=== PATIENT | male | born 1945 ===

== ENCOUNTER 2017-07-23 15:09 | Inpatient (IN) | payer OTHER ==
--- NOTE | 2017-07-23 15:59 | ED PDOC ---
HPI: SOB/CHF/COPD Time Seen by Provider: 07/23/17 15:26 Chief Complaint (Nursing): Shortness Of Breath Additional Complaint(s): 72 yo male pmhx HTN and ?PVD presents to ED w/ c/o dyspnea on exertion, PND, B/ L swelling of legs and non-productive cough x 1 month. Pt reports he went to see his PMD for the first time today and was told to come to ED for further evaluation. Pt reports he feels shortness of breath with walking 1-2 blocks for 1 month (states this is new to pt). Denies chest pain, nausea, vomiting, extremity weakness or numbness. Denies fever, chills. Pt came from [place] 4 months ago and denies ever being diagnosed with CHF or COPD. Denies smoking cigarettes or EtOH. Denies having ECHO done in the past. PMD: Dr. Dorota Mancuso Past Medical History Vital Signs: Last Vital Signs Temp 97.3 F L 07/23/17 15:18 Pulse 113 H 07/23/17 15:18 Resp 22 07/23/17 15:18 BP 140/98 H 07/23/17 17:15 Pulse Ox 98 07/23/17 16:23 - Medical History PMH: HTN - Surgical History Surgical History: No Surg Hx - Family History Family History: States: Hypertension (and CHF: mother) - Social History Current smoker - smoking cessation education provided: No Ex-Smoker (has not smoked in the last 12 months): No Alcohol: None Drugs: Denies - Home Medications Home Medications: Ambulatory Orders Medication Instructions Recorded Ascorbic Acid [Vitamin C 500 mg 1 tab PO DAILY 07/23/17 Tab] Aspirin [Ecotrin] 1 tab PO DAILY 07/23/17 Captopril [Captopril] 25 mg PO BID 07/23/17 Multivitamin [Multi-Vitamin Daily] 1 tab PO DAILY 07/23/17 - Allergies Allergies/Adverse Reactions: Allergies Allergy/AdvReac Type Severity Reaction Status Date / Time No Known Allergies Allergy Verified 07/23/17 15:18 Review of Systems Constitutional: Negative for: Fever, Chills Eyes: Negative for: Vision Change ENT: Negative for: Nose Congestion Cardiovascular: Positive for: Orthopnea, Paroxysmal Noc. Dyspnea, Edema. Negative for: Chest Pain, Palpitations Respiratory: Positive for: Cough, SOB with Exertion. Negative for: Sputum Gastrointestinal: Negative for: Nausea, Vomiting, Abdominal Pain Genitourinary Male: Negative for: Dysuria Skin: Negative for: Rash Neurological: Negative for: Weakness, Numbness, Headache, Dizziness Physical Exam - Physical Exam Appears: Positive for: Non-toxic, No Acute Distress Head Exam: Positive for: ATRAUMATIC, NORMOCEPHALIC Skin: Negative for: Diaphoresis ENT: Positive for: Normal ENT Inspection Neck: Positive for: Normal Cardiovascular/Chest: Positive for: Regular Rate, Rhythm. Negative for: Murmur Respiratory: Positive for: Crackles (on b/l lung base) Gastrointestinal/Abdominal: Positive for: Normal Exam, Bowel Sounds, Soft. Negative for: Tenderness Extremity: Positive for: Pedal Edema, Swelling (B/L 2+ upto proximal tibia with visible varicose veins.) Neurologic/Psych: Positive for: Alert, test deskman II-XII, Oriented. Negative for: Motor/Sensory Deficits, Aphasia, Facial Droop - Laboratory Results Result Diagrams: 07/23/17 16:09 07/23/17 16:09 - ECG O2 Sat by Pulse Oximetry: 98 - Progress ED Course And Treament: Assessment: 72 yo male PMHX HTN sent to ED from PMD for evaluation of dyspnea on exertion, orthopnea and PND for 1 month. Plan: EKG PRO BNP CMP TROPONIN I CBC D DIMER PT/INR UA Case d/w ED attending Dr. Kevin Lenz at 6:45 pm Pt's pro BNP is 6190 and D-dimer 1857. CT of chest was negative for PE and dopple us LE report is pending. Pt will need hospitalization for new onset CHF. Spoke with and pt will be admitted under Dr. Meza. Disposition - Clinical Impression Clinical Impression: CHF (congestive heart failure), Exertional dyspnea - Patient ED Disposition Is Patient to be Admitted: Yes Discussed With : Garfield Meza - Disposition Disposition Time: 18:51 Condition: GUARDED Forms: [facility] (Lao) - Pt Status Changed To: Hospital Disposition Of: Inpatient - Admit Certification Admit to Inpatient:: After my assessment, the patient will require hospitalization for at least two midnights. This is because of the severity of symptoms shown, intensity of services needed, and/or the medical risk in this patient being treated as an outpatient.
[2017-07-23 16:20] LABS: BASO % 0.6 % (0.0-2.0); EOS # 0.1 K/uL (0.0-0.7); EOS % 1.1 % (0.0-4.0); LYMPH # 1.8 K/uL (1.0-4.3); LYMPH % 23.2 % (20.0-40.0); MEAN CELL VOLUME 89.8 fl (80.0-94.0); MEAN CORPUSCULAR HEMOGLOBIN 29.8 pg (27.0-31.0); MEAN CORPUSCULAR HGB CONC 33.2 g/dL (33.0-37.0); MEAN PLATELET VOLUME 10.9 fl (7.2-11.7); MONO # 0.8 K/uL (0.0-0.8); NEUT # 4.9 K/uL (1.8-7.0); NEUT % 64.1 % (50.0-75.0); NRBC % 0.1 % (0.0-0.0); RBC 4.7 Mil/uL (4.40-5.90); RED CELL DISTRIBUTION WIDTH 15.4 % (11.5-14.5); WHITE BLOOD COUNT 7.6 K/uL (4.8-10.8)
[2017-07-23 16:32] LABS: URINE BACTERIA RARE (<OCC); URINE BILIRUBIN NEGATIVE (NEGATIVE); URINE BLOOD NEGATIVE (NEGATIVE); URINE CLARITY CLOUDY (Clear); URINE COLOR AMBER (YELLOW); URINE GLUCOSE (UA) NEG (Normal); URINE LEUKOCYTE ESTERASE NEG Leu/uL (Negative); URINE NITRATE NEGATIVE (NEGATIVE); URINE PROTEIN >=500 mg/dL (NEGATIVE)
[2017-07-23 16:44] LABS: ALB/GLOB RATIO 1.4 (1.0-2.1); ALBUMIN 3.5 g/dL (3.5-5.0); CALCIUM 8.8 mg/dL (8.4-10.2)
[2017-07-23 16:53] LABS: INR 1.4 (0.9-1.2); PROTHROMBIN TIME 15.9 Seconds (9.8-13.1)
[2017-07-23 16:54] LABS: PARTIAL THROMBOPLASTIN TIME 30.6 Seconds (25.6-37.1)
[2017-07-23 16:56] LABS: TROPONIN I 0.063 ng/mL (0.00-0.120)
--- NOTE | 2017-07-23 16:56 | RAD ---
HISTORY: Shortness of breath. COMPARISON: No prior. FINDINGS: LUNGS: No active pulmonary disease. PLEURA: No significant pleural effusion identified, no pneumothorax apparent. CARDIOVASCULAR: Cardiomegaly. No evidence of acute, significant cardiovascular disease. OSSEOUS STRUCTURES: No significant abnormalities. VISUALIZED UPPER ABDOMEN: Normal. OTHER FINDINGS: None. IMPRESSION: No active disease.
[2017-07-23] MEDS ORDERED: Iodixanol 320 MG/ML 100 ML BOTTLE IV ONE (17:45)
[2017-07-23] MEDS ORDERED: Sodium Chloride 0.9% 50 ML IV ONE (17:45)
--- NOTE | 2017-07-23 18:13 | CT ---
PROCEDURE: CT Chest with contrast (Pulmonary Angiogram) HISTORY: SOB COMPARISON: None available. TECHNIQUE: Axial computed tomography images were obtained of the chest in the pulmonary arterial phase of enhancement. Coronal and sagittal reformatted images were created and reviewed. Maximum intensity projection (MIP) reconstructed images in the following planes: Axial projection only Intravenous contrast dose: 95 cc Visipaque 320. Mean Hounsfield unit values in the main pulmonary artery: 407.78 Radiation dose: Total exam DLP = 675.52 mGy-cm. This CT exam was performed using one or more of the following dose reduction techniques: Automated exposure control, adjustment of the mA and/or kV according to patient size, and/or use of iterative reconstruction technique. FINDINGS: PULMONARY ARTERIES: Unremarkable. No pulmonary embolism. Dilated main pulmonary artery 4 cm consistent with pulmonary arterial hypertension. AORTA: Aneurysmal dilatation of the ascending aorta 4.8 cm. Non aneurysmal descending aorta. LUNGS: Unremarkable. No nodule, mass or pulmonary consolidation. PLEURAL SPACES: Small bilateral pleural effusions right larger than left. HEART: Cardiomegaly. Increased interstitial markings and thickening of interlobular septa compatible with mild pulmonary vascular congestion. Dilatation of the right ventricle, dense contrast within the IVC suggestive of a component of right heart failure, right heart strain. LYMPH NODES: No lymphadenopathy. BONES, CHEST WALL: Unremarkable. No fracture or destructive lesion OTHER FINDINGS: Stranding of the right upper quadrant fat adjacent to the gallbladder. No gallstones identified with certainty. Trace intra-abdominal ascites. IMPRESSION: 1. Unremarkable CT pulmonary angiogram. No pulmonary embolus. 2. Dilated main pulmonary artery consistent with pulmonary arterial hypertension and there may be a component of right heart failure. 3. Cardiomegaly, mild CHF. 4. Trace intra-abdominal ascites. 5. Right upper quadrant inflammatory changes adjacent to the gallbladder without gallstones.
--- NOTE | 2017-07-23 18:54 | US ---
PROCEDURE: Bilateral lower extremity venous duplex Doppler. HISTORY: BLE edema COMPARISON: None available. TECHNIQUE: Bilateral common femoral, superficial femoral, popliteal and posterior tibial veins were evaluated. Flow was assessed with color Doppler, compressibility, assessment of phasic flow and augmentation response. FINDINGS: COMMON FEMORAL VEIN: Right CFV: Unremarkable. Left CFV: Unremarkable. SUPERFICIAL FEMORAL VEIN: Right SFV: Unremarkable. Left SFV: Unremarkable. POPLITEAL VEIN: Right Popliteal: Unremarkable. Left Popliteal: Unremarkable. POSTERIOR TIBIAL VEIN: Right PTV: Unremarkable. Left PTV: Unremarkable. OTHER FINDINGS: None. IMPRESSION: No evidence of deep venous thrombosis.
--- NOTE | 2017-07-23 19:10 | CP.PCM.HP ---
History of Present Illness - History of Present Illness History of Present Illness: 72 yo male visiting from [place] with history of HTN and CAD brought by nephew because of legs swelling since 4 weeks ago followed with SOB on mild exertion 2 weeks later. Also noted waking up suddenly with SOB last week. Saw a PCP today who sent him here for evaluation and management for possible CHF. Patient denied chest pain, fever or chills. Present on Admission - Present on Admission Any Indicators Present on Admission: No History of DVT/PE: No History of Uncontrolled Diabetes: No Urinary Catheter: No Decubitus Ulcer Present: No Review of Systems - Review of Systems All systems: reviewed and no additional remarkable complaints except (aside from those mentioned above, 12 point system review were negative by me) Past Patient History - Infectious Disease Hx of Infectious Diseases: None - Past Medical History & Family History Pertinent Family History: brother and sister have CHF - Past Social History Smoking Status: Never Smoked Alcohol: None Drugs: Denies Home Situation {Lives}: With Family - CARDIAC Hx Cardia Arrhythmia: Yes Hx Hypertension: Yes - PSYCHIATRIC Hx Substance Use: No - SURGICAL HISTORY Hx Surgeries: No - ANESTHESIA Hx Anesthesia: No Meds Allergies/Adverse Reactions: Allergies Allergy/AdvReac Type Severity Reaction Status Date / Time No Known Allergies Allergy Verified 07/23/17 15:18 Physical Exam - Constitutional Appears: No Acute Distress - Head Exam Head Exam: ATRAUMATIC - Eye Exam Eye Exam: absent: Scleral icterus - ENT Exam ENT Exam: Mucous Membranes Moist - Neck Exam Neck exam: Negative for: Meningismus - Respiratory Exam Respiratory Exam: absent: Rhonchi, Wheezes, Respiratory Distress - Cardiovascular Exam Cardiovascular Exam: Tachycardia, Irregular Rhythm - GI/Abdominal Exam GI & Abdominal Exam: Soft. absent: Tenderness - Rectal Exam Rectal Exam: Deferred - Extremities Exam Extremities exam: Positive for: pedal edema (3+ pedal edema) - Back Exam Back exam: absent: tenderness - Neurological Exam Neurological exam: Alert, Oriented x3 - Psychiatric Exam Psychiatric exam: Normal Affect - Skin Skin Exam: Dry, Intact Results - Vital Signs Recent Vital Signs: Last Vital Signs Temp 97.3 F L 07/23/17 15:18 Pulse 113 H 07/23/17 15:18 Resp 22 07/23/17 15:18 BP 140/98 H 07/23/17 17:15 Pulse Ox 98 07/23/17 16:23 - Labs Result Diagrams: 07/23/17 16:09 07/23/17 16:09 Labs: Laboratory Results - last 24 hr 07/23/17 07/23/17 07/23/17 16:09 16:09 16:09 WBC 7.6 RBC 4.70 Hgb 14.0 Hct 42.2 MCV 89.8 MCH 29.8 MCHC 33.2 RDW 15.4 H Plt Count 171 MPV 10.9 Neut % (Auto) 64.1 Lymph % (Auto) 23.2 Carter % (Auto) 11.0 H Eos % (Auto) 1.1 Baso % (Auto) 0.6 Neut # (Auto) 4.9 Lymph # (Auto) 1.8 Carter # (Auto) 0.8 Eos # (Auto) 0.1 Baso # (Auto) 0.0 PT 15.9 H INR 1.4 H APTT 30.6 D-Dimer, Quantitative 1857 H Sodium 138 Potassium 4.4 Chloride 103 Carbon Dioxide 23 Anion Gap 16 BUN 31 H Creatinine 1.4 Est GFR ( Amer) 60 Est GFR (Non-Af Amer) 50 Random Glucose 126 H Calcium 8.8 Total Bilirubin 1.8 H AST 64 H ALT 100 H Alkaline Phosphatase 77 Troponin I 0.0630 NT-Pro-B Natriuret Pep 6190 H Total Protein 6.2 L Albumin 3.5 Globulin 2.6 Albumin/Globulin Ratio 1.4 Urine Color Urine Clarity Urine pH Ur Specific [place] Urine Protein Urine Glucose (UA) Urine Ketones Urine Blood Urine Nitrate Urine Bilirubin Urine Urobilinogen Ur Leukocyte Esterase Urine RBC (Auto) Urine Microscopic WBC Urine Bacteria Hyaline Casts 07/23/17 16:09 WBC RBC Hgb Hct MCV MCH MCHC RDW Plt Count MPV Neut % (Auto) Lymph % (Auto) [place] % (Auto) Eos % (Auto) Baso % (Auto) Neut # (Auto) Lymph # (Auto) Carter # (Auto) Eos # (Auto) Baso # (Auto) PT INR APTT D-Dimer, Quantitative Sodium Potassium Chloride Carbon Dioxide Anion Gap BUN Creatinine Est GFR ( Amer) Est GFR (Non-Af Amer) Random Glucose Calcium Total Bilirubin AST ALT Alkaline Phosphatase Troponin I NT-Pro-B Natriuret Pep Total Protein Albumin Globulin Albumin/Globulin Ratio Urine Color [place] Urine Clarity Cloudy Urine pH 5.0 Ur Specific [place] 1.029 Urine Protein >=500 Urine Glucose (UA) Neg Urine Ketones Trace Urine Blood Negative Urine Nitrate Negative Urine Bilirubin Negative Urine Urobilinogen 4.0 Ur Leukocyte Esterase Neg Urine RBC (Auto) 3 Urine Microscopic WBC 7 H Urine Bacteria Rare Hyaline Casts 6-10 H Assessment & Plan - Assessment and Plan (Free Text) Assessment: 72 yo male visiting from [place] with history of HTN and CAD brought by nephew because of legs swelling since 4 weeks ago followed with SOB on mild exertion 2 weeks later. Also noted waking up suddenly with SOB last week. Saw a PCP today who sent him here for evaluation and management for possible CHF. Patient denied chest pain, fever or chills. 1. CHF probably secondary to systolic dysfunction nephew said he was diagnosed with "ischemia" of the heart in [place] has been eating a lot of potato chips and salty food while here since 4 months ago only received ASA and Captopril ECHO cardiology consult with [facility] Lasix 40mg PO daily 2. HTN BP slightly elevated Lasix 40mg PO daily Continue Captopril 25mg PO BID low salt diet 3. CAD lipid profile continue ASA
[2017-07-24] MEDS ORDERED: Pneumococcal 23-Valent Vaccine IM ONE (05:02)
[2017-07-24 06:00] LABS: ALB/GLOB RATIO 1.3 (1.0-2.1); ALBUMIN 3.2 g/dL (3.5-5.0); BILIRUBIN,DIRECT 0.8 mg/ml (0.0-0.4); CALCIUM 8.6 mg/dL (8.4-10.2)
[2017-07-24 06:01] LABS: BASO % 0.6 % (0.0-2.0); EOS # 0.2 K/uL (0.0-0.7); HEMOGLOBIN 13.4 g/dL (12.0-18.0); LYMPH # 2.2 K/uL (1.0-4.3); LYMPH % 29.6 % (20.0-40.0); MEAN CELL VOLUME 90.3 fl (80.0-94.0); MEAN CORPUSCULAR HEMOGLOBIN 29.5 pg (27.0-31.0); MEAN CORPUSCULAR HGB CONC 32.7 g/dL (33.0-37.0); MEAN PLATELET VOLUME 11.4 fl (7.2-11.7); MONO # 0.7 K/uL (0.0-0.8); NEUT # 4.3 K/uL (1.8-7.0); NEUT % 56.8 % (50.0-75.0); NRBC % 0.1 % (0.0-0.0); RBC 4.55 Mil/uL (4.40-5.90); RED CELL DISTRIBUTION WIDTH 15.1 % (11.5-14.5); WHITE BLOOD COUNT 7.5 K/uL (4.8-10.8)
[2017-07-24] MEDS: Influenza Vaccine 18yr & older 0.5 ML/45 MCG SYR IM ONE ×2 (06:01→06:06)
--- NOTE | 2017-07-24 10:08 | CARD ---
APPROVED REPORT EKG Measurement Heart [id number] <Conclusion> Sinus tachycardia with premature atrial complexes with aberrant conduction Possible Left atrial enlargement Right bundle branch block Abnormal ECG
[2017-07-24] MEDS: Enoxaparin 40 mg Syringe SC SCH (10:16)
[2017-07-24] MEDS: Pantoprazole 40 mg EC Tab PO SCH (10:18)
--- NOTE | 2017-07-24 11:26 | CP.PCM.CON ---
History of Present Illness - History of Present Illness History of Present Illness: 72 yo male visiting from [place] with history of HTN and CAD admitted with CHF 4 weeks Hx pedal edema assoc w/ SOB/BRAVO Patient denied chest pain, fever or chills. Pt claims he has only had symptoms for 1 month Denies any cardiac problems BNP: 6190 Troponin: neg EKG: NSR RBBB ECHO: Severe LV Dysfunction global Hypokinesia EF: < 15% Severe MR Severe TR Past Patient History - Infectious Disease Hx of Infectious Diseases: None - Past Medical History & Family History Past Medical History?: Yes - Past Social History Smoking Status: Never Smoked - CARDIAC Hx Cardia Arrhythmia: Yes Hx Hypertension: Yes - PULMONARY Hx Respiratory Disorders: No - NEUROLOGICAL Hx Neurological Disorder: No - HEENT Hx HEENT Problems: No - RENAL Hx Chronic Kidney Disease: No - ENDOCRINE/METABOLIC Hx Endocrine Disorders: No - HEMATOLOGICAL/ONCOLOGICAL Hx Blood Disorders: No Hx AIDS: No Hx Human Immunodeficiency Virus (HIV): No - INTEGUMENTARY Hx Dermatological Problems: No - MUSCULOSKELETAL/RHEUMATOLOGICAL Hx Musculoskeletal Disorders: No Hx Falls: No - GASTROINTESTINAL Hx Gastrointestinal Disorders: No - GENITOURINARY/GYNECOLOGICAL Hx Genitourinary Disorders: No - PSYCHIATRIC Hx Psychophysiologic Disorder: No Hx Substance Use: No - SURGICAL HISTORY Hx Surgeries: No - ANESTHESIA Hx Anesthesia: No Hx Anesthesia Reactions: No Hx Malignant Hyperthermia: No Has any member of the family had a problem w/ anesthesia?: No Meds Allergies/Adverse Reactions: Allergies Allergy/AdvReac Type Severity Reaction Status Date / Time No Known Allergies Allergy Verified 07/23/17 15:18 - Medications Medications: Current Medications Docusate Sodium (Colace) 100 mg PO BID PRN PRN Reason: Constipation Enoxaparin Sodium (Lovenox) 40 mg SC DAILY [facility] PRN Reason: Protocol Last Admin: 07/24/17 10:16 Dose: 40 mg Furosemide (Lasix) 40 mg PO DAILY [facility] Last Admin: 07/24/17 10:17 Dose: 40 mg Lisinopril (Zestril) 5 mg PO DAILY [facility] Last Admin: 07/24/17 10:17 Dose: 5 mg Pantoprazole Sodium (Protonix Ec Tab) 40 mg PO DAILY [facility] Last Admin: 07/24/17 10:18 Dose: 40 mg Physical Exam - Respiratory Exam Respiratory Exam: NORMAL BREATHING PATTERN - Cardiovascular Exam Cardiovascular Exam: REGULAR RHYTHM - Extremities Exam Extremities exam: Positive for: pedal edema Results - Vital Signs Recent Vital Signs: Last Vital Signs Temp 97.4 F L 07/24/17 08:00 Pulse 101 H 07/24/17 10:17 Resp 18 07/24/17 08:00 BP 142/96 H 07/24/17 10:17 Pulse Ox 96 07/24/17 08:00 - Labs Result Diagrams: 07/24/17 04:25 07/24/17 04:25 Labs: Laboratory Results - last 24 hr 07/23/17 07/23/17 07/23/17 16:09 16:09 16:09 WBC 7.6 RBC 4.70 Hgb 14.0 Hct 42.2 MCV 89.8 MCH 29.8 MCHC 33.2 RDW 15.4 H Plt Count 171 MPV 10.9 Neut % (Auto) 64.1 Lymph % (Auto) 23.2 [place] % (Auto) 11.0 H Eos % (Auto) 1.1 Baso % (Auto) 0.6 Neut # (Auto) 4.9 Lymph # (Auto) 1.8 [place] # (Auto) 0.8 Eos # (Auto) 0.1 Baso # (Auto) 0.0 PT 15.9 H INR 1.4 H APTT 30.6 D-Dimer, Quantitative 1857 H Sodium 138 Potassium 4.4 Chloride 103 Carbon Dioxide 23 Anion Gap 16 BUN 31 H Creatinine 1.4 Est GFR ( Amer) 60 Est GFR (Non-Af Amer) 50 Random Glucose 126 H Calcium 8.8 Total Bilirubin 1.8 H Direct Bilirubin AST 64 H ALT 100 H Alkaline Phosphatase 77 Troponin I 0.0630 NT-Pro-B Natriuret Pep 6190 H Total Protein 6.2 L Albumin 3.5 Globulin 2.6 Albumin/Globulin Ratio 1.4 Triglycerides Cholesterol LDL Cholesterol Direct HDL Cholesterol Urine Color Urine Clarity Urine pH Ur Specific [place] Urine Protein Urine Glucose (UA) Urine Ketones Urine Blood Urine Nitrate Urine Bilirubin Urine Urobilinogen Ur Leukocyte Esterase Urine RBC (Auto) Urine Microscopic WBC Urine Bacteria Hyaline Casts 07/23/17 07/24/17 07/24/17 16:09 04:25 04:25 WBC 7.5 RBC 4.55 Hgb 13.4 Hct 41.1 MCV 90.3 MCH 29.5 MCHC 32.7 L RDW 15.1 H Plt Count 153 MPV 11.4 Neut % (Auto) 56.8 Lymph % (Auto) 29.6 [place] % (Auto) 10.0 Eos % (Auto) 3.0 Baso % (Auto) 0.6 Neut # (Auto) 4.3 Lymph # (Auto) 2.2 [place] # (Auto) 0.7 Eos # (Auto) 0.2 Baso # (Auto) 0.0 PT INR APTT D-Dimer, Quantitative Sodium 141 Potassium 4.1 Chloride 100 Carbon Dioxide 30 Anion Gap 15 BUN 29 H Creatinine 1.4 Est GFR ( Amer) 60 Est GFR (Non-Af Amer) 50 Random Glucose 96 Calcium 8.6 Total Bilirubin 2.1 H Direct Bilirubin 0.8 H AST 60 H ALT 98 H Alkaline Phosphatase 67 Troponin I NT-Pro-B Natriuret Pep Total Protein 5.6 L Albumin 3.2 L Globulin 2.4 Albumin/Globulin Ratio 1.3 Triglycerides 85 Cholesterol 135 LDL Cholesterol Direct 97 HDL Cholesterol 25 L Urine Color [place] Urine Clarity Cloudy Urine pH 5.0 Ur Specific [place] 1.029 Urine Protein >=500 Urine Glucose (UA) Neg Urine Ketones Trace Urine Blood Negative Urine Nitrate Negative Urine Bilirubin Negative Urine Urobilinogen 4.0 Ur Leukocyte Esterase Neg Urine RBC (Auto) 3 Urine Microscopic WBC 7 H Urine Bacteria Rare Hyaline Casts 6-10 H Assessment & Plan (1) Chronic systolic CHF (congestive heart failure) Assessment and Plan: I have changed his Lasix to 40mg IV BID Status: Acute (2) Congestive cardiomyopathy Status: Acute - Date & Time Date: 07/24/17 Time: 11:00
[2017-07-24 16:46] LABS: HEPATITIS B SURFACE AG Negative (NEGATIVE)
[2017-07-24 16:51] LABS: HEPATITIS A IGM NEGATIVE (NEGATIVE); HEPATITIS B CORE AB NEGATIVE (NEGATIVE)
[2017-07-24 17:03] LABS: HEPATITIS C ANTIBODY NEGATIVE (NEGATIVE)
--- NOTE | 2017-07-24 17:37 | CP.PCM.PN ---
Subjective - Date & Time of Evaluation Date of Evaluation: 07/24/17 Time of Evaluation: 14:00 - Subjective Subjective: Patient seen and examined. Claimed he was feeling much better. Denied SOB or chest pain. Objective - Vital Signs/Intake and Output Vital Signs (last 24 hours): Temp Pulse Resp BP Pulse Ox 98.4 F 100 H 17 134/92 H 97 07/24/17 15:43 07/24/17 15:43 07/24/17 15:43 07/24/17 15:43 07/24/17 15:43 - Medications Medications: Current Medications Docusate Sodium (Colace) 100 mg PO BID PRN PRN Reason: Constipation Enoxaparin Sodium (Lovenox) 40 mg SC DAILY [facility] PRN Reason: Protocol Last Admin: 07/24/17 10:16 Dose: 40 mg Furosemide (Lasix) 40 mg IVP BID [facility] Lisinopril (Zestril) 5 mg PO DAILY [facility] Last Admin: 07/24/17 10:17 Dose: 5 mg Pantoprazole Sodium (Protonix Ec Tab) 40 mg PO DAILY [facility] Last Admin: 07/24/17 10:18 Dose: 40 mg - Labs Labs: 07/24/17 04:25 07/24/17 04:25 PT 15.9 Seconds (9.8-13.1) H 07/23/17 16:09 INR 1.4 (0.9-1.2) H 07/23/17 16:09 APTT 30.6 Seconds (25.6-37.1) 07/23/17 16:09 - Constitutional Appears: No Acute Distress - Head Exam Head Exam: ATRAUMATIC - Eye Exam Eye Exam: absent: Scleral icterus - ENT Exam ENT Exam: Mucous Membranes Moist - Neck Exam Neck Exam: absent: Meningismus - Respiratory Exam Respiratory Exam: absent: Rhonchi, Wheezes, Respiratory Distress - Cardiovascular Exam Cardiovascular Exam: REGULAR RHYTHM, +S1, +S2 - GI/Abdominal Exam GI & Abdominal Exam: Soft. absent: Tenderness - Rectal Exam Rectal Exam: Deferred - Extremities Exam Extremities Exam: Pedal Edema - Back Exam Back Exam: absent: tenderness - Neurological Exam Neurological Exam: Alert, Oriented x3 - Psychiatric Exam Psychiatric exam: Normal Affect - Skin Skin Exam: Dry, Intact Assessment and Plan - Assessment and Plan (Free Text) Assessment: 72 yo male visiting from [place] with history of HTN and CAD brought by nephew because of legs swelling since 4 weeks ago followed with SOB on mild exertion 2 weeks later. Also noted waking up suddenly with SOB last week. Saw a PCP today who sent him here for evaluation and management for possible CHF. Patient denied chest pain, fever or chills. 1. CHF probably secondary to systolic and diastolic dysfunction ECHO: showed global hypokinesia with severe LV dysfunction; EF <15%; severe MR and severe TR cardiology consult with Dr Broderick appreciated increase Lasix to 40mg IV BID Lisinopril 5mg PO daily patient may need AID 2. HTN BP stable on Lasix and Lisinopril low salt diet 3. CAD ASA 81mg PO daily will hold giving statin as LFTs were elevated 4. Elevated LFTs probably secondary to passive congestion of the liver Hepatitis profile were negative 5. DVT Prophylaxis Lovenox 40mg SC daily
--- NOTE | 2017-07-24 18:04 | US ---
HISTORY: elevated LFTs COMPARISON: None. TECHNIQUE: Sonographic evaluation of the right upper quadrant of the abdomen. FINDINGS: LIVER: Measures 11.7 cm in length. Hepatopedal blood flow. Fatty infiltration manifest ultrasonographically as increased echogenicity of the liver parenchyma. No mass. No intrahepatic bile duct dilatation. GALLBLADDER: Unremarkable. No gallstones. COMMON BILE DUCT: Measures 2.6 mm. No stones. No dilatation. PANCREAS: Unremarkable as visualized. No mass. No ductal dilatation. RIGHT KIDNEY: Measures 10.8 cm in length. Normal echogenicity. No calculus, mass, or hydronephrosis. AORTA: No aneurysmal dilatation. IVC: Unremarkable. OTHER FINDINGS: None . IMPRESSION: Hepatic steatosis common normal size liver. Otherwise unremarkable study.
--- NOTE | 2017-07-24 20:39 | CARD ---
APPROVED REPORT EXAM: Two-dimensional and M-mode echocardiogram with Doppler and color Doppler. Other Information Quality : ExcellentRhythm : NSR INDICATION Dyspnea 2D DIMENSIONS IVSd0.85 (0.7-1.1cm)LVDd6.88 (3.9-5.9cm) LVOT Diameter2.34 (1.8-2.4cm)PWd1.02 (0.7-1.1cm) IVSs0.87 (0.8-1.2cm)LVDs6.03 (2.5-4.0cm) FS (%) 12.3 %PWs1.08 (0.8-1.2cm) M-Mode DIMENSIONS Left Atrium (MM)6.15 (2.5-4.0cm)IVSd0.91 (0.7-1.1cm) Aortic Root3.81 (2.2-3.7cm)LVDd7.82 (4.0-5.6cm) Aortic Cusp Exc.1.96 (1.5-2.0cm)PWd0.98 (0.7-1.1cm) IVSs0.87 cmFS (%) 17 % LVDs6.53 (2.0-3.8cm)PWs0.94 cm Mitral Valve E/A ratio0.0 TDI E/Lateral E'0.0E/Medial E'0.0 Pulmonary Valve PV Peak Lssbfqts90.2cm/s Tricuspid Valve TR Peak [id number] [id number] Peak Gr.35mmHg [id number] LEFT VENTRICLE The Left Ventricle is severely dilated. There is normal left ventricular wall thickness. Left ventricle systolic function is severely impaired. The Ejection Fraction is -15-20%. global severe hypokinesia Transmitral Doppler flow pattern is abnormal. No left ventricle thrombus noted on this study. There is no ventricular septal defect visualized. There is no left ventricular aneurysm. There is no mass noted in the left ventricle. RIGHT VENTRICLE The right ventricle is moderately dilated. There is normal right ventricular wall thickness. The right ventricular systolic function is normal. ATRIA The left atrium is severely dilated. There is no thrombus suspected in the left atrium. The right atrium is moderately dilated. The interatrial septum is intact with no evidence for an atrial septal defect. AORTIC VALVE The aortic valve is normal in structure. No aortic regurgitation is present. There is no aortic valvular stenosis. MITRAL VALVE The mitral valve leaflets are mildly thickened. There is no evidence of mitral valve prolapse. There is no mitral valve stenosis. Mitral regurgitation is severe. TRICUSPID VALVE The tricuspid valve is normal in structure. There is severe tricuspid regurgitation. Right ventricular systolic pressure is estimated at 47 mmHg. There is no tricuspid valve prolapse or vegetation. There is no tricuspid valve stenosis. PULMONIC VALVE The pulmonary valve is normal in structure. There is mild pulmonic valvular regurgitation. GREAT VESSELS The aortic root is normal in size. The IVC collapses <50% with inspiration. PERICARDIAL EFFUSION The pericardium appears normal. There is no pleural effusion. <Conclusion> The Left Ventricle is severely dilated. There is normal left ventricular wall thickness. Left ventricle systolic function is severely impaired. The Ejection Fraction is -15-20%. The left atrium is severely dilated. The right ventricle and right atrium are moderately enlarged on some 2D views. The mitral valve is mildly thickened but not stenotic. The aortic and tricuspid valves ate normal. There is severe mitral regurgitation and severe tricuspid regurgitation.
[2017-07-25] MEDS: Pantoprazole 40 mg EC Tab PO SCH (09:28)
[2017-07-25] MEDS: Enoxaparin 40 mg Syringe SC SCH (09:29)
--- NOTE | 2017-07-25 11:24 | CP.PCM.PN ---
Subjective - Date & Time of Evaluation Date of Evaluation: 07/25/17 Time of Evaluation: 10:00 - Subjective Subjective: Feels much better Pedal edema improving pt may be discharged and treated as an out patient Objective - Vital Signs/Intake and Output Vital Signs (last 24 hours): Temp Pulse Resp BP Pulse Ox 97.9 F 83 18 133/80 97 07/25/17 07:54 07/25/17 09:29 07/25/17 07:54 07/25/17 09:29 07/25/17 07:54 - Medications Medications: Current Medications Aspirin (Aspirin Chewable) 81 mg PO DAILY [facility] Last Admin: 07/25/17 09:28 Dose: 81 mg Docusate Sodium (Colace) 100 mg PO BID PRN PRN Reason: Constipation Enoxaparin Sodium (Lovenox) 40 mg SC DAILY [facility] PRN Reason: Protocol Last Admin: 07/25/17 09:29 Dose: 40 mg Furosemide (Lasix) 40 mg IVP BID [facility] Last Admin: 07/25/17 09:29 Dose: 40 mg Lisinopril (Zestril) 5 mg PO DAILY [facility] Last Admin: 07/25/17 09:29 Dose: 5 mg Pantoprazole Sodium (Protonix Ec Tab) 40 mg PO DAILY [facility] Last Admin: 07/25/17 09:28 Dose: 40 mg - Labs Labs: 07/24/17 04:25 07/24/17 04:25 PT 15.9 Seconds (9.8-13.1) H 07/23/17 16:09 INR 1.4 (0.9-1.2) H 07/23/17 16:09 APTT 30.6 Seconds (25.6-37.1) 07/23/17 16:09 Assessment and Plan (1) Chronic systolic CHF (congestive heart failure) Status: Acute (2) Congestive cardiomyopathy Status: Acute
--- NOTE | 2017-07-25 11:39 | CP.PCM.DIS ---
Provider - Provider Date of Admission: 07/23/17 18:34 Attending physician: Patrice Meza MD Time Spent in preparation of Discharge (in minutes): 30 Hospital Course - Lab Results Lab Results: Most Recent Lab Values WBC 7.5 K/uL (4.8-10.8) 07/24/17 04:25 RBC 4.55 Mil/uL (4.40-5.90) 07/24/17 04:25 Hgb 13.4 g/dL (12.0-18.0) 07/24/17 04:25 Hct 41.1 % (35.0-51.0) 07/24/17 04:25 MCV 90.3 fl (80.0-94.0) 07/24/17 04:25 MCH 29.5 pg (27.0-31.0) 07/24/17 04:25 MCHC 32.7 g/dL (33.0-37.0) L 07/24/17 04:25 RDW 15.1 % (11.5-14.5) H 07/24/17 04:25 Plt Count 153 K/uL (130-400) 07/24/17 04:25 MPV 11.4 fl (7.2-11.7) 07/24/17 04:25 Neut % (Auto) 56.8 % (50.0-75.0) 07/24/17 04:25 Lymph % (Auto) 29.6 % (20.0-40.0) 07/24/17 04:25 [place] % (Auto) 10.0 % (0.0-10.0) 07/24/17 04:25 Eos % (Auto) 3.0 % (0.0-4.0) 07/24/17 04:25 Baso % (Auto) 0.6 % (0.0-2.0) 07/24/17 04:25 Neut # (Auto) 4.3 K/uL (1.8-7.0) 07/24/17 04:25 Lymph # (Auto) 2.2 K/uL (1.0-4.3) 07/24/17 04:25 [place] # (Auto) 0.7 K/uL (0.0-0.8) 07/24/17 04:25 Eos # (Auto) 0.2 K/uL (0.0-0.7) 07/24/17 04:25 Baso # (Auto) 0.0 K/uL (0.0-0.2) 07/24/17 04:25 PT 15.9 Seconds (9.8-13.1) H 07/23/17 16:09 INR 1.4 (0.9-1.2) H 07/23/17 16:09 APTT 30.6 Seconds (25.6-37.1) 07/23/17 16:09 D-Dimer, Quantitative 1857 ng/mlDDU (0-230) H 07/23/17 16:09 Sodium 141 mmol/l (132-148) 07/24/17 04:25 Potassium 4.1 MMOL/L (3.6-5.0) 07/24/17 04:25 Chloride 100 mmol/L (98-107) 07/24/17 04:25 Carbon Dioxide 30 mmol/L (22-30) 07/24/17 04:25 Anion Gap 15 (10-20) 07/24/17 04:25 BUN 29 mg/dl (9-20) H 07/24/17 04:25 Creatinine 1.4 mg/dl (0.8-1.5) 07/24/17 04:25 Est GFR ( Amer) 60 07/24/17 04:25 Est GFR (Non-Af Amer) 50 07/24/17 04:25 Random Glucose 96 mg/dL (75-110) 07/24/17 04:25 Calcium 8.6 mg/dL (8.4-10.2) 07/24/17 04:25 Total Bilirubin 2.1 mg/dl (0.2-1.3) H 07/24/17 04:25 Direct Bilirubin 0.8 mg/ml (0.0-0.4) H 07/24/17 04:25 AST 60 U/L (17-59) H 07/24/17 04:25 ALT 98 U/L (21-72) H 07/24/17 04:25 Alkaline Phosphatase 67 U/L (38-126) 07/24/17 04:25 Troponin I 0.0630 ng/mL (0.00-0.120) 07/23/17 16:09 NT-Pro-B Natriuret Pep 6190 pg/ml (0-900) H 07/23/17 16:09 Total Protein 5.6 G/DL (6.3-8.2) L 07/24/17 04:25 Albumin 3.2 g/dL (3.5-5.0) L 07/24/17 04:25 Globulin 2.4 gm/dL (2.2-3.9) 07/24/17 04:25 Albumin/Globulin Ratio 1.3 (1.0-2.1) 07/24/17 04:25 Triglycerides 85 mg/DL (0-149) 07/24/17 04:25 Cholesterol 135 mg/dL (0-199) 07/24/17 04:25 LDL Cholesterol Direct 97 mg/dL (0-129) 07/24/17 04:25 HDL Cholesterol 25 MG/DL (30-70) L 07/24/17 04:25 Urine Color [place] (YELLOW) 07/23/17 16:09 Urine Clarity Cloudy (Clear) 07/23/17 16:09 Urine pH 5.0 (5.0-8.0) 07/23/17 16:09 Ur Specific [place] 1.029 (1.003-1.030) 07/23/17 16:09 Urine Protein >=500 mg/dL (NEGATIVE) 07/23/17 16:09 Urine Glucose (UA) Neg mg/dL (Normal) 07/23/17 16:09 Urine Ketones Trace mg/dL (NEGATIVE) 07/23/17 16:09 Urine Blood Negative (NEGATIVE) 07/23/17 16:09 Urine Nitrate Negative (NEGATIVE) 07/23/17 16:09 Urine Bilirubin Negative (NEGATIVE) 07/23/17 16:09 Urine Urobilinogen 4.0 mg/dL (0.2-1.0) 07/23/17 16:09 Ur Leukocyte Esterase Neg [place]/uL (Negative) 07/23/17 16:09 Urine RBC (Auto) 3 /hpf (0-3) 07/23/17 16:09 Urine Microscopic WBC 7 /hpf (0-5) H 07/23/17 16:09 Urine Bacteria Rare (<OCC) 07/23/17 16:09 Hyaline Casts 6-10 /hpf (0-2) H 07/23/17 16:09 Hepatitis A IgM Ab Negative (NEGATIVE) 07/24/17 11:31 Hep Bs Antigen Negative (NEGATIVE) 07/24/17 11:31 Hep B Core IgM Ab Negative (NEGATIVE) 07/24/17 11:31 Hepatitis C Antibody Negative (NEGATIVE) 07/24/17 11:31 - Hospital Course Hospital Course: 72 yo male visiting from [place] with history of HTN and CAD brought by nephew because of legs swelling since 4 weeks ago followed with SOB on mild exertion 2 weeks later. Also noted waking up suddenly with SOB last week. Saw a PCP today who sent him here for evaluation and management for possible CHF. Patient denied chest pain, fever or chills. Pt seen by cardiology, may be treated as outpatient. Follow up cardiology and PCP in one week. 1. CHF probably secondary to systolic and diastolic dysfunction ECHO: showed global hypokinesia with severe LV dysfunction; EF <15%; severe MR and severe TR cardiology consult with Dr Broderick appreciated PO lasix 2. HTN BP stable on Lasix and Lisinopril low salt diet 3. CAD ASA 81mg PO daily will hold giving statin as LFTs were elevated 4. Elevated LFTs probably secondary to passive congestion of the liver Hepatitis profile were negative 5. DVT Prophylaxis Lovenox 40mg SC daily Discharge Exam - Head Exam Head Exam: ATRAUMATIC, NORMOCEPHALIC - Eye Exam Eye Exam: EOMI, Normal appearance, PERRL Pupil Exam: NORMAL ACCOMODATION - ENT Exam ENT Exam: Mucous Membranes Moist, Normal Oropharynx - Respiratory Exam Respiratory Exam: Clear to PA & Lateral, NORMAL BREATHING PATTERN - Cardiovascular Exam Cardiovascular Exam: RRR, +S1, +S2 - GI/Abdominal Exam GI & Abdominal Exam: Normal Bowel Sounds, Soft. absent: Mass, Tenderness - Extremities Exam Extremities exam: normal capillary refill, pedal pulses present - Back Exam Back exam: absent: CVA tenderness (L), CVA tenderness (R) - Neurological Exam Neurological exam: Alert, Oriented x3 - Psychiatric Exam Psychiatric exam: Normal Affect, Normal Mood - Skin Skin Exam: Dry, Warm Discharge Plan - Discharge Medications Prescriptions: Captopril 25 mg PO BID #60 tablet Furosemide [Lasix] 20 mg PO DAILY #30 tablet - Follow Up Plan Condition: GUARDED Disposition: HOME/ ROUTINE
[2017-07-25 13:19] VITALS: O2SAT 96
[2017-07-25 16:28] VITALS: BP 113/78; PULSE 97; RESP 14; TEMP 97.3
--- NOTE | 2017-07-26 11:29 | PQF CHF ---
Dr. Meza discharge summary documents systolic and diastolic congestive heart failure. Please clarify below acuity. This form is a permanent part of the medical record Clarification of your documentation is requested to better reflect the severity of illness and intensity of treatment of your patient. Indicators present [x] Diagnosis of CHF and/or history of CHF [x] BNP > 200 [] Imaging Finding of Pulmonary Edema /Pleural Effusions [] Fluid/Volume Overload [x] Pitting edema [x] Ejection Fraction < 40% (Indicative of Systolic Heart Failure) [] Ejection Fraction > 40% (Indicative of Diastolic Heart Failure) [x] Dyspnea / Orthopenea / Paroxysmal Nocturnal Dyspnea [] Other: Location in the medical record that reflects the above clinical findings: [x] History and PE; Labs and Imaging Treatment Provided: [x] Lasix 40mg IV q 12hrs, Oscar Inhibitor PHYSICIAN'S RESPONSE Based on your medical judgment of the clinical indicators outlined above, are you treating this patient for a known or suspected: [] Acute CHF [] Systolic [] Diastolic [] Combined [] Chronic CHF [] Systolic [] Diastolic [] Combined [x] Acute on Chronic CHF [x]Systolic [] Diastolic [] Combined [] CHF due hypertension [] Acute systolic []Chronic systolic [] Acute/ chronic systolic [] Other, please indicate: [] [] If Unable to Determine, please check the box, sign and date. Present On Admission (POA) Indicator: [x] Present at the time of admission [] Not present at the time of admission [] Clinically Undetermined In responding to this query, please exercise your independent professional judgment. The fact that a question is asked does not imply that any particular answer is desired or expected. Thank you for your clarification on this documentation. If you have any questions please call:[ ] * Thank you, [ ]Ayala Pemberton foundry technician NAIMA
== END 2017-07-25 17:00 | disposition home or self-care (01) | DRG 127 ==
LOC: H.ER 15:09 → H.ERHOLD 18:34 → H.TEL 23:13
PROC: 3E0234Z Introduction of Serum, Toxoid and Vaccine into Muscle, Percutaneous Approach (ICD-10-PCS; principal; 2017-07-24)
DX: I11.0 Hypertensive heart disease with heart failure (principal); I42.0 Dilated cardiomyopathy; I25.10 Atherosclerotic heart disease of native coronary artery without angina pectoris; Z23 Encounter for immunization; R79.89 Other specified abnormal findings of blood chemistry; I50.23 Acute on chronic systolic (congestive) heart failure

== ENCOUNTER 2017-08-03 07:55 | Observation (INO) | payer SELFPAY ==
[2017-08-03 07:59] VITALS: BMI 34.1
--- NOTE | 2017-08-03 08:32 | ED PDOC ---
HPI: SOB/CHF/COPD Time Seen by Provider: 08/03/17 08:06 Chief Complaint (Nursing): Shortness Of Breath History Per: Patient Onset/Duration Of Symptoms: Days (1) Current Symptoms Are (Timing): Still Present Severity: Mild Recently: Hospitalized Additional Complaint(s): Mild SOB since last night assoc with swelling lower ext. Denies chest pain 2 pillow orthopnea. Scant nonproductive cough No fever. Recently hospitalized for CHF Past Medical History Vital Signs: Last Vital Signs Temp 97.5 F L 08/03/17 07:59 Pulse 88 08/03/17 09:00 Resp 18 08/03/17 08:42 BP 130/71 08/03/17 09:02 Pulse Ox 96 08/03/17 09:00 - Medical History PMH: CAD, Cardia Arrhythmia, HTN Denies: HIV, Chronic Kidney Disease - Family History Family History: States: Hypertension (and CHF: mother) - Home Medications Home Medications: Ambulatory Orders Medication Instructions Recorded Ascorbic Acid [Vitamin C 500 mg 1 tab PO DAILY 07/23/17 Tab] Aspirin [Ecotrin] 1 tab PO DAILY 07/23/17 Multivitamin [Multi-Vitamin Daily] 1 tab PO DAILY 07/23/17 Captopril 25 mg PO BID #60 tablet 07/25/17 Furosemide [Lasix] 20 mg PO DAILY #30 tablet 07/25/17 - Allergies Allergies/Adverse Reactions: Allergies Allergy/AdvReac Type Severity Reaction Status Date / Time No Known Allergies Allergy Verified 07/23/17 15:18 Review of Systems ROS Statement: Except As Marked, All Systems Reviewed And Found Negative Constitutional: Negative for: Fever Cardiovascular: Negative for: Chest Pain Respiratory: Positive for: Shortness of Breath Physical Exam - Reviewed Nursing Documentation Reviewed: Yes Vital Signs Reviewed: Yes - Physical Exam Appears: Positive for: Non-toxic, No Acute Distress Head Exam: Positive for: ATRAUMATIC, NORMAL INSPECTION, NORMOCEPHALIC Skin: Positive for: Normal Color, Warm, DRY Eye Exam: Positive for: EOMI, Normal appearance, PERRL ENT: Positive for: Normal ENT Inspection Neck: Positive for: Normal, Painless ROM Cardiovascular/Chest: Positive for: Regular Rate, Rhythm Respiratory: Positive for: Rales (bases bilat). Negative for: Wheezing, Respiratory Distress Gastrointestinal/Abdominal: Positive for: Normal Exam, Bowel Sounds, Soft Back: Positive for: Normal Inspection Extremity: Positive for: Pedal Edema Neurologic/Psych: Positive for: Alert, Oriented - Laboratory Results Result Diagrams: 08/03/17 08:55 08/03/17 08:55 - ECG O2 Sat by Pulse Oximetry: 96 Disposition - Clinical Impression Clinical Impression: CHF (congestive heart failure), Arrhythmia - Patient ED Disposition Is Patient to be Admitted: Yes - Disposition Disposition Time: 12:21 Condition: FAIR Forms: [facility] ([place]osotho) - Pt Status Changed To: Hospital Disposition Of: Observation - POA Present On Arrival: None
--- NOTE | 2017-08-03 09:10 | RAD ---
HISTORY: COMPARISON: 07/23/2017. TECHNIQUE: Chest PA and lateral FINDINGS: LINES AND TUBES: None. LUNG AND PLEURA: The lungs are well inflated and there is mild pulmonary venous congestion. No focal consolidation HEART AND MEDIASTINUM: There is persistent moderate card. The hilar and mediastinal contours are within normal limits. SKELETAL STRUCTURES: The bony structures are within normal limits for the patient's age. VISUALIZED UPPER ABDOMEN: Normal. OTHER FINDINGS: None. IMPRESSION: Persistent moderate cardiomegaly and mild pulmonary venous congestion. No active pulmonary disease.
[2017-08-03 09:16] LABS: BASO # 0.1 K/uL (0.0-0.2); BASO % 0.7 % (0.0-2.0); EOS # 0.2 K/uL (0.0-0.7); EOS % 2.1 % (0.0-4.0); HEMOGLOBIN 14.1 g/dL (12.0-18.0); LYMPH # 1.6 K/uL (1.0-4.3); LYMPH % 18.3 % (20.0-40.0); MEAN CELL VOLUME 89.8 fl (80.0-94.0); MEAN CORPUSCULAR HEMOGLOBIN 29.5 pg (27.0-31.0); MEAN CORPUSCULAR HGB CONC 32.8 g/dL (33.0-37.0); MEAN PLATELET VOLUME 11.1 fl (7.2-11.7); MONO # 0.8 K/uL (0.0-0.8); MONO % 9.1 % (0.0-10.0); NEUT # 5.9 K/uL (1.8-7.0); NEUT % 69.8 % (50.0-75.0); NRBC % 0.2 % (0.0-0.0); RBC 4.77 Mil/uL (4.40-5.90); RED CELL DISTRIBUTION WIDTH 15.9 % (11.5-14.5); WHITE BLOOD COUNT 8.5 K/uL (4.8-10.8)
[2017-08-03 09:33] LABS: ALB/GLOB RATIO 1.3 (1.0-2.1); ALBUMIN 3.7 g/dL (3.5-5.0); CALCIUM 8.9 mg/dL (8.4-10.2)
[2017-08-03 09:36] LABS: TROPONIN I 0.051 ng/mL (0.00-0.120)
--- NOTE | 2017-08-03 15:31 | CP.PCM.HP ---
History of Present Illness - History of Present Illness History of Present Illness: CC: dyspnea HPI: The patient is a 72 y/o man w/ pmh of HTN and recent diagnosis of reduced EF CHF presents to ED w/ shortness of breath. The patient reports shortness of breath started early in the morning while sleeping. The patient's sister reports that she heard the patient snoring and had apneic episode. She went to him and states that he felt cold. The patient was recently seen in [facility] (2017) for hospital discharge follow up for recent diagnosis of CHF. The patient reports requiring 2 pillows to prop himself up at night, can climb 1 flight of stairs before becoming dyspneic, wet-cough but non-productive, and 2 weeks of lower extremity edema. The patient denies headache, dizziness, chest pain, abdominal pain, nausea, vomiting, diarreha, dysuria, fever, or recent illness. Patient reports he is visiting from [place] and has been in the [place] for 6 months. PMD: [facility] PMH: HTN, chronic reduced EF CHF (last echo 07/24/2017: EF 15-20%) allergies: NKDA meds: ASA 81 mg PO daily, captopril 25 mg PO BID, furosemide 20 mg PO daily, potassium 20 meq PO daily PSH: none FamHx: non-contributory SOC: denies smoking, alcohol, and drugs ROS: 12 points assessed and negative unless otherwise reported in HPI ED course: vitals: 97.5 F, 88 beats/min, 130/71 mm Hg, resp 18, O2 96% RA CBC: 8.5>14.1/42.8<160 CMP: 138/4.8, 100/24, 41/1.5, glucose 118, AST 31, ALT 56 pro-BNP: 4310 troponin: 0.0510 EKG: sinus rhythm, multiple PVCs CXR: persistent moderate cardiomegaly and mild pulmonary venous congestion, no active pulmonary disease Present on Admission - Present on Admission Any Indicators Present on Admission: No History of DVT/PE: No History of Uncontrolled Diabetes: No Urinary Catheter: No Decubitus Ulcer Present: No Review of Systems - Review of Systems All systems: reviewed and no additional remarkable complaints except - Constitutional Constitutional: Snoring. absent: Fever, Headache - EENT Eyes: absent: Change in Vision - Cardiovascular Cardiovascular: Leg Edema, Pedal Edema. absent: Chest Pain, Palpitations - Respiratory Respiratory: Cough. absent: Hemoptysis, Dyspnea on Exertion, Wheezing - Gastrointestinal Gastrointestinal: absent: Abdominal Pain, Diarrhea, Hematochezia, Melena, Nausea , Vomiting - Genitourinary Genitourinary: absent: Dysuria - Integumentary Integumentary: absent: Rash - Neurological Neurological: absent: Dizziness, Headaches, Weakness Past Patient History - Infectious Disease Hx of Infectious Diseases: None - Past Medical History & Family History Past Medical History?: Yes - Past Social History Smoking Status: Never Smoked - CARDIAC Hx Cardia Arrhythmia: Yes Hx Hypertension: Yes - PULMONARY Hx Respiratory Disorders: No - NEUROLOGICAL Hx Neurological Disorder: No - HEENT Hx HEENT Problems: No - RENAL Hx Chronic Kidney Disease: No - ENDOCRINE/METABOLIC Hx Endocrine Disorders: No - HEMATOLOGICAL/ONCOLOGICAL Hx Human Immunodeficiency Virus (HIV): No - INTEGUMENTARY Hx Dermatological Problems: No - MUSCULOSKELETAL/RHEUMATOLOGICAL Hx Musculoskeletal Disorders: No Hx Falls: No - GASTROINTESTINAL Hx Gastrointestinal Disorders: No - GENITOURINARY/GYNECOLOGICAL Hx Genitourinary Disorders: No - PSYCHIATRIC Hx Psychophysiologic Disorder: No Hx Substance Use: No - SURGICAL HISTORY Hx Surgeries: No - ANESTHESIA Hx Anesthesia: No Hx Anesthesia Reactions: No Hx Malignant Hyperthermia: No Meds Allergies/Adverse Reactions: Allergies Allergy/AdvReac Type Severity Reaction Status Date / Time No Known Allergies Allergy Verified 07/23/17 15:18 Physical Exam - Constitutional Appears: No Acute Distress - Head Exam Head Exam: ATRAUMATIC, NORMAL INSPECTION, NORMOCEPHALIC - Eye Exam Eye Exam: Normal appearance - ENT Exam ENT Exam: Mucous Membranes Moist - Neck Exam Neck exam: Positive for: Full Rom. Negative for: Tenderness - Respiratory Exam Respiratory Exam: Rales. absent: Decreased Breath Sounds, Wheezes, Respiratory Distress - Cardiovascular Exam Cardiovascular Exam: REGULAR RHYTHM. absent: Tachycardia - GI/Abdominal Exam GI & Abdominal Exam: Normal Bowel Sounds, Soft. absent: Distended, Tenderness - Extremities Exam Extremities exam: Positive for: pedal edema. Negative for: calf tenderness Additional comments: +2 pedal edema bilaterally - Neurological Exam Neurological exam: Alert, Oriented x3 - Skin Skin Exam: Dry, Intact, Normal Color, Warm Results - Vital Signs Recent Vital Signs: Last Vital Signs Temp 97.5 F L 02/23/18 07:59 Pulse 90 08/03/17 14:06 Resp 18 08/03/17 14:06 BP 120/75 08/03/17 14:06 Pulse Ox 98 08/03/17 14:06 - Labs Result Diagrams: 08/03/17 08:55 08/03/17 08:55 Labs: Laboratory Results - last 24 hr 08/03/17 08/03/17 08:55 08:55 WBC 8.5 RBC 4.77 Hgb 14.1 Hct 42.8 MCV 89.8 MCH 29.5 MCHC 32.8 L RDW 15.9 H Plt Count 160 MPV 11.1 Neut % (Auto) 69.8 Lymph % (Auto) 18.3 L [place] % (Auto) 9.1 Eos % (Auto) 2.1 Baso % (Auto) 0.7 Neut # (Auto) 5.9 Lymph # (Auto) 1.6 [place] # (Auto) 0.8 Eos # (Auto) 0.2 Baso # (Auto) 0.1 Sodium 138 Potassium 4.8 Chloride 100 Carbon Dioxide 24 Anion Gap 19 BUN 41 H Creatinine 1.5 Est GFR ( Amer) 55 Est GFR (Non-Af Amer) 46 Random Glucose 118 H Calcium 8.9 Total Bilirubin 2.1 H AST 31 ALT 56 Alkaline Phosphatase 80 Troponin I 0.0510 NT-Pro-B Natriuret Pep 4310 H Total Protein 6.5 Albumin 3.7 Globulin 2.8 Albumin/Globulin Ratio 1.3 Assessment & Plan - Assessment and Plan (Free Text) Assessment: The patient is a 72 y/o man w/ pmh of HTN and recent diagnosis of reduced EF CHF presents to ED w/ shortness of breath Plan: 1. acute reduced EF CHF exacerbation (class III, stage IV) - last echo 07/24/2017: LV severely dilated, normal LV wall thickness, LV systolic function severely impaired, EF 15-20%, left atrium severely dialted, right ventricle and right atrium moderately enlarged on some 2D views, mitral valve mildly thickened but not stenotic, severe mitral regurgitation and severe tricuspid regurgitation - vitals: 97.5 F, 88 beats/min, 130/71 mm Hg, resp 18, O2 96% RA - CBC: 8.5>14.1/42.8<160 - CMP: 138/4.8, 100/24, 41/1.5, glucose 118, AST 31, ALT 56 - pro-BNP: 4310 - troponin: 0.0510 - EKG: sinus rhythm, multiple PVCs - CXR: persistent moderate cardiomegaly and mild pulmonary venous congestion, no active pulmonary disease - c/w lasix 40 mg IV BID - on captopril 25 mg PO BID - substitute w/ lisinopril 20 mg PO daily while inpatient - patient never started on beta-luis alberto, will consider initiating once hemodynamically stable - f/u troponin x2, bmp - f/u repeat EKG - f/u I&O - daily weight - monitor for acute changes 2. HTN - controlled w/ medication - on captopril 25 mg PO BID - substitute w/ lisinopril 20 mg PO daily while inpatient - c/w ASA 81 mg PO daily - hear healthy diet - monitor for acute changes 3. Prophylactic measures - DVT: lovenox 40 mg SC daily and SCDs
--- NOTE | 2017-08-03 22:54 | CARD ---
APPROVED REPORT EKG Measurement Heart [id number] <Conclusion> Sinus rhythm with frequent and consecutive premature ventricular complexes and fusion complexes Possible Left atrial enlargement Right bundle branch block Abnormal ECG
[2017-08-03] MEDS: Promethazine 6.25 MG/5 ML CUP PO PRN (23:34)
[2017-08-04 07:03] LABS: CALCIUM 8.6 mg/dL (8.4-10.2)
[2017-08-04 08:18] VITALS: RESP 18
[2017-08-04] MEDS ORDERED: Enoxaparin 40 mg Syringe SC SCH (09:00)
[2017-08-04] MEDS: Promethazine 6.25 MG/5 ML CUP PO PRN (09:08)
--- NOTE | 2017-08-04 09:27 | CP.PCM.PN ---
Subjective - Date & Time of Evaluation Date of Evaluation: 08/04/17 Time of Evaluation: 09:00 - Subjective Subjective: The patient seen and examined bedside this morning. There are no acute events overnight, NAD. The patient is laying comfortably in bed. The patietn reports breathing is improved and the leg swelling is greatly reduced. The patient denies headaches, dizziness, chest pain, SOB, abdominal pain, nausea, vomiting, diarrhea, dysuria, or fever. Objective - Vital Signs/Intake and Output Vital Signs (last 24 hours): Temp Pulse Resp BP Pulse Ox 97.3 F L 92 H 18 114/84 97 08/04/17 08:18 08/04/17 09:05 08/04/17 08:18 08/04/17 09:06 08/04/17 08:18 - Medications Medications: Current Medications Aspirin (Ecotrin) 81 mg PO DAILY [facility] Last Admin: 08/04/17 09:06 Dose: 81 mg Enoxaparin Sodium (Lovenox) 40 mg SC DAILY [facility] PRN Reason: Protocol Last Admin: 08/04/17 09:08 Dose: 40 mg Furosemide (Lasix) 40 mg IV BID [facility] Last Admin: 08/04/17 09:06 Dose: 40 mg Lisinopril (Zestril) 20 mg PO DAILY [facility] Last Admin: 08/04/17 09:05 Dose: 20 mg Promethazine HCl (Phenergan Syrup) 6.25 mg PO Q6 PRN PRN Reason: Cough Last Admin: 08/04/17 09:08 Dose: 6.25 mg - Labs Labs: 08/03/17 08:55 08/04/17 05:18 - Constitutional Appears: Non-toxic, No Acute Distress - Head Exam Head Exam: ATRAUMATIC, NORMAL INSPECTION, NORMOCEPHALIC - Eye Exam Eye Exam: Normal appearance - ENT Exam ENT Exam: Mucous Membranes Moist - Neck Exam Neck Exam: Full ROM. absent: Tenderness - Respiratory Exam Respiratory Exam: Rales. absent: Decreased Breath Sounds, Rhonchi, Wheezes, Respiratory Distress Additional comments: mild bibasilar crackles - Cardiovascular Exam Cardiovascular Exam: REGULAR RHYTHM. absent: Tachycardia - GI/Abdominal Exam GI & Abdominal Exam: Soft, Normal Bowel Sounds. absent: Distended, Tenderness - Extremities Exam Extremities Exam: Pedal Edema. absent: Calf Tenderness, Tenderness Additional comments: +1 pitting edema bilaterally - Neurological Exam Neurological Exam: Alert, Awake, Oriented x3 - Skin Skin Exam: Dry, Intact, Normal Color, Warm
--- NOTE | 2017-08-04 11:29 | CP.PCM.DIS ---
Provider - Provider Date of Admission: 08/03/17 12:20 Attending physician: Rosa Iniguez MD Time Spent in preparation of Discharge (in minutes): 15 Diagnosis - Discharge Diagnosis (1) Acute exacerbation of CHF (congestive heart failure) Status: Acute Hospital Course - Lab Results Lab Results: Most Recent Lab Values WBC 8.5 K/uL (4.8-10.8) 08/03/17 08:55 RBC 4.77 Mil/uL (4.40-5.90) 08/03/17 08:55 Hgb 14.1 g/dL (12.0-18.0) 08/03/17 08:55 Hct 42.8 % (35.0-51.0) 08/03/17 08:55 MCV 89.8 fl (80.0-94.0) 08/03/17 08:55 MCH 29.5 pg (27.0-31.0) 08/03/17 08:55 MCHC 32.8 g/dL (33.0-37.0) L 08/03/17 08:55 RDW 15.9 % (11.5-14.5) H 08/03/17 08:55 Plt Count 160 K/uL (130-400) 08/03/17 08:55 MPV 11.1 fl (7.2-11.7) 08/03/17 08:55 Neut % (Auto) 69.8 % (50.0-75.0) 08/03/17 08:55 Lymph % (Auto) 18.3 % (20.0-40.0) L 08/03/17 08:55 Lander % (Auto) 9.1 % (0.0-10.0) 08/03/17 08:55 Eos % (Auto) 2.1 % (0.0-4.0) 08/03/17 08:55 Baso % (Auto) 0.7 % (0.0-2.0) 08/03/17 08:55 Neut # (Auto) 5.9 K/uL (1.8-7.0) 08/03/17 08:55 Lymph # (Auto) 1.6 K/uL (1.0-4.3) 08/03/17 08:55 Lander # (Auto) 0.8 K/uL (0.0-0.8) 08/03/17 08:55 Eos # (Auto) 0.2 K/uL (0.0-0.7) 08/03/17 08:55 Baso # (Auto) 0.1 K/uL (0.0-0.2) 08/03/17 08:55 Sodium 140 mmol/l (132-148) 08/04/17 05:18 Potassium 4.3 MMOL/L (3.6-5.0) 08/04/17 05:18 Chloride 97 mmol/L (98-107) L 08/04/17 05:18 Carbon Dioxide 30 mmol/L (22-30) 08/04/17 05:18 Anion Gap 17 (10-20) 08/04/17 05:18 BUN 36 mg/dl (9-20) H 08/04/17 05:18 Creatinine 1.7 mg/dl (0.8-1.5) H 08/04/17 05:18 Est GFR ( Amer) 48 08/04/17 05:18 Est GFR (Non-Af Amer) 40 08/04/17 05:18 Random Glucose 87 mg/dL (75-110) 08/04/17 05:18 Calcium 8.6 mg/dL (8.4-10.2) 08/04/17 05:18 Total Bilirubin 2.1 mg/dl (0.2-1.3) H 08/03/17 08:55 AST 31 U/L (17-59) 08/03/17 08:55 ALT 56 U/L (21-72) 08/03/17 08:55 Alkaline Phosphatase 80 U/L (38-126) 08/03/17 08:55 Troponin I 0.0610 ng/mL (0.00-0.120) 08/04/17 00:00 NT-Pro-B Natriuret Pep 4310 pg/ml (0-900) H 08/03/17 08:55 Total Protein 6.5 G/DL (6.3-8.2) 08/03/17 08:55 Albumin 3.7 g/dL (3.5-5.0) 08/03/17 08:55 Globulin 2.8 gm/dL (2.2-3.9) 08/03/17 08:55 Albumin/Globulin Ratio 1.3 (1.0-2.1) 08/03/17 08:55 - Hospital Course Hospital Course: The patient is a 72 y/o man w/ pmh of HTN and recent diagnosis of reduced EF CHF presents to ED w/ shortness of breath. The patient on admission had VSS, CBC WNL, CMP showed elevated Cr 1.5, proBNP 4310, troponin negative x3, EKG showed sinus rhythm w/ multiple PVCs, CXR showed no active pulmonary disease. The patient was given diuresis w/ lasix 40 mg IV BID w/ great improvement of lower extremity edema and dyspnea. The patient reports feeling better. The patient has been seen, examined, and deemed medically fit for discharge home. The patient will be discharged w/ carvedilol 3.125 mg PO BID in addition to home medication of JERAMY, lasix, and aspirin. The patient is to get BMP on Sunday08/06/2017 and follow up w/ [facility] on 08/07/2017 w/ Dr. Carvalho @ 15:20 Discharge Exam - Head Exam Head Exam: ATRAUMATIC, NORMAL INSPECTION, NORMOCEPHALIC - Eye Exam Eye Exam: Normal appearance - ENT Exam ENT Exam: Mucous Membranes Moist - Respiratory Exam Respiratory Exam: Rales. absent: Decreased Breath Sounds, Rhonchi, Wheezes, Respiratory Distress Additional comments: mild bibasilar crackles - Cardiovascular Exam Cardiovascular Exam: REGULAR RHYTHM. absent: Tachycardia - GI/Abdominal Exam GI & Abdominal Exam: Normal Bowel Sounds, Soft. absent: Distended, Tenderness - Extremities Exam Extremities exam: pedal edema Additional comments: trace bilateral pedal edema - Neurological Exam Neurological exam: Alert, Oriented x3 - Skin Skin Exam: Dry, Intact, Normal Color, Warm Discharge Plan - Discharge Medications Prescriptions: Aspirin [Ecotrin] 81 mg PO DAILY 30 Days #30 tabec Carvedilol [Coreg] 3.125 mg PO BID #30 tab Furosemide [Lasix] 40 mg PO DAILY #30 tablet - Follow Up Plan Condition: FAIR Disposition: HOME/ ROUTINE Instructions: Heart Failure (DC), Heart Failure (GEN), Pacemaker (DC), Pacemaker (GEN), Pulmonary Edema (DC), Pulmonary Edema (GEN), Ascites (DC), Ascites (GEN) Additional Instructions: patient will get cardiology referral following clinic appointment as per MD. Clinical Quality Measures - CQM - Heart Failure Ejection Fraction: Less Than 40 % Left Ventricular Function to be assessed after discharge: Yes JERAMY Inhibitor Prescribed: Yes Beta-Promise Prescribed: Carvedilol Will be discharged to: Home Follow Up Date (must be within 7 days from discharge): 08/07/17 Follow Up Time: 09:00
[2017-08-04 12:21] VITALS: BP 112/75; PULSE 89; TEMP 97.4; O2SAT 98
== END 2017-08-04 14:46 | disposition home or self-care (01) ==
LOC: H.ER 07:55 → H.ERHOLD 12:20 → H.TEL 18:00
PROVIDERS: ADMIT Family Medicine Geriatric Medicine; ATTEND Family Medicine Geriatric Medicine
DX: I11.0 Hypertensive heart disease with heart failure (principal); I50.9 Heart failure, unspecified; I25.10 Atherosclerotic heart disease of native coronary artery without angina pectoris; Z79.82 Long term (current) use of aspirin
CPT/HCPCS: 36415; 71046; 80048; 80053; 83880; 84484; 85025; 93005; 96374; 99283; G0378; J1650; J1940

== ENCOUNTER 2017-08-20 16:38 | Emergency (ER) | payer SELFPAY ==
[2017-08-20 16:39] VITALS: BMI 34.1
[2017-08-20 16:51] VITALS: RESP 16; TEMP 98.1; O2SAT 98
[2017-08-20] MEDS ORDERED: Iohexol 240 (50 ml) PO ONE (17:46)
[2017-08-20] MEDS ORDERED: Iohexol 240 (50 ml) ONE (18:08)
[2017-08-20 18:41] LABS: BASO # 0.1 K/uL (0.0-0.2); BASO % 0.8 % (0.0-2.0); EOS # 0.4 K/uL (0.0-0.7); HEMOGLOBIN 12.4 g/dL (12.0-18.0); LYMPH # 1.4 K/uL (1.0-4.3); LYMPH % 23.1 % (20.0-40.0); MEAN CELL VOLUME 89.1 fl (80.0-94.0); MEAN CORPUSCULAR HEMOGLOBIN 28.7 pg (27.0-31.0); MEAN CORPUSCULAR HGB CONC 32.2 g/dL (33.0-37.0); MEAN PLATELET VOLUME 10.1 fl (7.2-11.7); MONO # 0.6 K/uL (0.0-0.8); MONO % 10.8 % (0.0-10.0); NEUT # 3.5 K/uL (1.8-7.0); NEUT % 58.3 % (50.0-75.0); RBC 4.33 Mil/uL (4.40-5.90); RED CELL DISTRIBUTION WIDTH 16.7 % (11.5-14.5)
--- NOTE | 2017-08-20 18:56 | ED PDOC ---
HPI: Abdomen Time Seen by Provider: 08/20/17 17:06 Chief Complaint (Nursing): Groin Pain Chief Complaint (Provider): groin and testicular pain History Per: Patient, Family, Proof Passer History/Exam Limitations: no limitations Current Symptoms Are (Timing): Still Present Severity: Moderate Location Of Pain/Discomfort: LLQ Quality Of Discomfort: Sharp Associated Symptoms: denies: Nausea, Vomiting, Diarrhea, Loss Of Appetite, Urinary Symptoms Exacerbating Factors: None, Other Alleviating Factors: None Additional Complaint(s): 72yo male c/o sudden onset testicular pain and swelling since this morning. Denies nausea, vomiting or diarrhea. States symptoms started after lifting garbage. Past Medical History Reviewed: Historical Data, Nursing Documentation, Vital Signs Vital Signs: Last Vital Signs Temp 98.1 F 08/20/17 16:48 Pulse 88 08/20/17 22:28 Resp 16 08/20/17 16:48 BP 122/91 H 08/20/17 22:28 Pulse Ox 98 08/20/17 22:51 - Medical History PMH: CAD, Cardia Arrhythmia, HTN Denies: HIV, Chronic Kidney Disease - Surgical History Surgical History: No Surg Hx - Family History Family History: States: Hypertension (and CHF: mother) - Living Arrangements Living Arrangements: With Family - Home Medications Home Medications: Ambulatory Orders Medication Instructions Recorded Captopril 25 mg PO BID #60 tablet 07/25/17 Potassium Chloride [K-Dur 20 mEq 20 meq PO DAILY 08/03/17 ER Tab] Aspirin [Ecotrin] 81 mg PO DAILY 30 Days #30 tabec 08/04/17 Carvedilol [Coreg] 3.125 mg PO BID #30 tab 08/04/17 Furosemide [Lasix] 40 mg PO DAILY #30 tablet 08/04/17 - Allergies Allergies/Adverse Reactions: Allergies Allergy/AdvReac Type Severity Reaction Status Date / Time No Known Allergies Allergy Verified 07/23/17 15:18 Review of Systems Constitutional: Negative for: Fever ENT: Negative for: Throat Pain Cardiovascular: Negative for: Chest Pain Gastrointestinal: Negative for: Nausea, Vomiting, Abdominal Pain, Diarrhea Genitourinary Male: Positive for: Scrotal Pain Musculoskeletal: Negative for: Neck Pain Skin: Negative for: Rash, Lesions, Jaundice Neurological: Negative for: Weakness, Numbness Psych: Negative for: Anxiety Physical Exam - Reviewed Nursing Documentation Reviewed: Yes Vital Signs Reviewed: Yes - Physical Exam Appears: Positive for: Non-toxic Head Exam: Positive for: ATRAUMATIC, NORMAL INSPECTION, NORMOCEPHALIC Skin: Positive for: Normal Color, Warm, DRY Eye Exam: Positive for: EOMI, Normal appearance, PERRL ENT: Positive for: Normal ENT Inspection Neck: Positive for: Normal, Painless ROM Cardiovascular/Chest: Positive for: Regular Rate, Rhythm Respiratory: Positive for: CNT, Normal Breath Sounds Gastrointestinal/Abdominal: Positive for: Bowel Sounds, Soft, Tenderness (mild L groin). Negative for: Distended Male Genital Exam: Positive for: scrotum tenderness (L), other (+scrotal edema no induration or erythema) Back: Positive for: Normal Inspection Extremity: Positive for: Normal ROM Neurologic/Psych: Positive for: Alert, Oriented. Negative for: Motor/Sensory Deficits - Laboratory Results Result Diagrams: 08/20/17 18:37 08/20/17 18:37 - ECG O2 Sat by Pulse Oximetry: 98 Medical Decision Making Medical Decision Making: workup for scrotal pain initiated r/o hernia/ hydrocele or other testicular pathology labs reviewed WBC normal Disposition - Clinical Impression Clinical Impression: Scrotal edema, Hydrocele - Patient ED Disposition Is Patient to be Admitted: Transfer of Care - Disposition Referrals: Hiram Galan MD [Medical Doctor] - Disposition: Transfer of Care Disposition Time: 19:12 Condition: GOOD Additional Instructions: Follow up with your PCP in 2-3 days. You will be called in 2 days to follow up with urologist. Instructions: Hydrocele Forms: [id number] (Nauruan) Print Language: KIAN Patient Signed Over To: Destinee Colmenares Handoff Comments: pending CT/ US and re-eval
[2017-08-20 18:57] LABS: ALB/GLOB RATIO 1.2 (1.0-2.1); ALBUMIN 3.3 g/dL (3.5-5.0); CALCIUM 8.5 mg/dL (8.4-10.2)
--- NOTE | 2017-08-20 19:15 | ED PDOC ---
- Laboratory Results Result Diagrams: 08/20/17 18:37 08/20/17 18:37 - ECG O2 Sat by Pulse Oximetry: 98 Medical Decision Making Medical Decision Makin:00 Patient transferred to [place] by Dr. Shore pending CT abdomen and further evaluation. 19:46 US Scrotum FINDINGS: Right testicle: Measures 4.7 x 2.3 x 3.1 cm. Contains 3 tiny, rounded, anechoic to slightly hypoechoic, well-defined lesions, located in the midpole region laterally, the largest of which measures 3.4 x 2.8 mm. These most likely represent tiny right intratesticular cysts. They abut a larger area of tiny, branching, avascular tubular cystic ectasia, most likely representing tubular ectasia. Flow seen in the right testicle on color and Doppler imaging, with no evidence of torsion. Right epididymis: Within normal limits in appearance. Head measures 1.2 x 1.2 cm. Left testicle: Appears mildly heterogeneous, with no focal lesions seen. Otherwise within normal limits in appearance. Measures 4.2 x 1.8 x 2.8 cm. Flow seen in the left testicle on color and Doppler imaging, with no evidence of torsion. Left epididymis: Contains a 1.3 x 1.2 cm round, well-defined, hypoechoic lesion with homogeneous, low level echoes, most likely representing a left spermatocele. Also contains 2 smaller cysticappearing lesions, most likely representing left epididymal cysts. The larger of these measures 6 x 6 mm. Hydrocoele: Small to moderate bilateral hydroceles are seen. Varicocele: Left-sided varicocele is seen. Scrotum: Significant edema is seen in the scrotal soft tissues bilaterally, and there is bilateral scrotal skin thickening. In the left scrotum, there is a significantly complex appearance of the soft tissues surrounding the left testis, where the soft tissues have a multi-septate appearance. Cannot rule out a complex fluid collection in the left scrotal soft tissues, surrounding the left testis. IMPRESSION: Complex, multiseptate appearance of the left scrotal soft tissues, surrounding the left testis, and cannot rule out a complex left peritesticular fluid collection. Significant bilateral scrotal edema and skin thickening. Findings are suspicious for scrotal cellulitis. Non-inflammatory causes of scrotal edema could also have this appearance. Bilateral hydroceles. Otherwise, no evidence of significant acute process. No evidence of testicular torsion. Tiny right intratesticular cysts, with findings suspicious for tubular ectasia of the right testis. 1.3 cm left spermatocele. Left-sided varicocele. See above for remaining findings. 10:[address] FINDINGS: LOWER THORAX: Heart appears moderately enlarged. Reflux of IV contrast into the IVC and hepatic veins noted, a finding which can be seen in the setting of right heart dysfunction. Recommend clinical correlation. ABDOMEN: LIVER: Fatty infiltration of the liver. Liver appears enlarged. GALLBLADDER AND BILE DUCTS: No CT evidence of acute cholecystitis. No evidence of significant biliary ductal dilatation. PANCREAS: No CT evidence of acute pancreatitis. SPLEEN: No acute abnormality of the spleen identified. ADRENALS: No acute abnormality of the adrenal glands identified. KIDNEYS AND URETERS: Bilateral perinephric stranding, a nonspecific finding. Low density STOMACH AND BOWEL: No acute abnormality of the stomach, small bowel or colon identified, allowing for motion artifact. No evidence of bowel obstruction. APPENDIX: Appendix is seen, and is within normal limits in appearance. PELVIS: BLADDER: Mild infiltration of the fat around the bladder is noted. Bladder wall appears diffusely, mildly thickened. Findings could be signs of cystitis. Bladder diverticulosis, which could be secondary to chronic bladder outlet obstruction. Recommend clinical correlation. REPRODUCTIVE: Marked, diffuse scrotal fluid/edema, as seen on the recent scrotal ultrasound. No scrotal gas is visualized. Note that the scrotum is not included in its entirety on this exam. Prostate gland is enlarged. ABDOMEN and PELVIS: INTRAPERITONEAL SPACE: Small amount of abdominal free fluid. No evidence of free air. RETROPERITONEAL SPACE: Small amount of diffuse of fluid in the retroperitoneum, in the abdomen and pelvis, with no evidence of acute retroperitoneal hemorrhage. BONES/JOINTS: No acute fractures or other acute bony abnormality noted. SOFT TISSUES: Bilateral fat-containing inguinal hernias. Small umbilical hernia , containing only fat. No evidence of abdominal wall hernia containing bowel. VASCULATURE: No evidence of abdominal aortic aneurysm. No evidence of periaortic hemorrhage. LYMPH NODES: No evidence of diffuse lymphadenopathy. IMPRESSION: - Marked, diffuse scrotal fluid/edema, as seen on the recent scrotal ultrasound. - Small amount of diffuse of fluid in the retroperitoneum, with no evidence of acute retroperitoneal hemorrhage. - Small amount of abdominal free fluid. - Bladder findings which could be due to cystitis. Recommend correlation with urinalysis results. - Cardiomegaly, with finding suggestive of right heart dysfunction. - See above for remaining findings. Disposition Doctor Will See Patient In The: Office Counseled Patient/Family Regarding: Studies Performed, Diagnosis, Need For Followup - Clinical Impression Clinical Impression: Scrotal edema, Hydrocele, CHF (congestive heart failure) - POA Present On Arrival: None - Disposition Referrals: Hiram Galan MD [Medical Doctor] - Disposition: Routine/Home Disposition Time: 22:50 Condition: GOOD Additional Instructions: Follow up with your PCP in 2-3 days. You will be called in 2 days to follow up with urologist. Instructions: Hydrocele Forms: [employer] (Cape Verdean) Print Language: ITALIAN
[2017-08-20 19:31] LABS: URINE BACTERIA RARE (<OCC); URINE BILIRUBIN NEGATIVE (NEGATIVE); URINE BLOOD NEGATIVE (NEGATIVE); URINE CLARITY SLIGHTY-CLOUDY (Clear); URINE COLOR YELLOW (YELLOW); URINE GLUCOSE (UA) NEG (Normal); URINE LEUKOCYTE ESTERASE NEG Leu/uL (Negative); URINE PROTEIN NEGATIVE (NEGATIVE)
--- NOTE | 2017-08-20 19:46 | US ---
EXAM: US Scrotum EXAM DATE/TIME: 08/20/2017 5:10 PM CLINICAL HISTORY: 72 years old, male; Pain and signs and symptoms; Swelling, testicles or scrotum; Scrotum pain; Additional info: Testicular swelling/ pain TECHNIQUE: Real-time ultrasound of the scrotum with color Doppler and image documentation. COMPARISON: No relevant prior studies available. FINDINGS: Right testicle: Measures 4.7 x 2.3 x 3.1 cm. Contains 3 tiny, rounded, anechoic to slightly hypoechoic, well-defined lesions, located in the midpole region laterally, the largest of which measures 3.4 x 2.8 mm. These most likely represent tiny right intratesticular cysts. They abut a larger area of tiny, branching, avascular tubular cystic ectasia, most likely representing tubular ectasia. Flow seen in the right testicle on color and Doppler imaging, with no evidence of torsion. Right epididymis: Within normal limits in appearance. Head measures 1.2 x 1.2 cm. Left testicle: Appears mildly heterogeneous, with no focal lesions seen. Otherwise within normal limits in appearance. Measures 4.2 x 1.8 x 2.8 cm. Flow seen in the left testicle on color and Doppler imaging, with no evidence of torsion. Left epididymis: Contains a 1.3 x 1.2 cm round, well-defined, hypoechoic lesion with homogeneous, low level echoes, most likely representing a left spermatocele. Also contains 2 smaller cystic-appearing lesions, most likely representing left epididymal cysts. The larger of these measures 6 x 6 mm. Hydrocoele: Small to moderate bilateral hydroceles are seen. Varicocele: Left-sided varicocele is seen. Scrotum: Significant edema is seen in the scrotal soft tissues bilaterally, and there is bilateral scrotal skin thickening. In the left scrotum, there is a significantly complex appearance of the soft tissues surrounding the left testis, where the soft tissues have a multi-septate appearance. Cannot rule out a complex fluid collection in the left scrotal soft tissues, surrounding the left testis. IMPRESSION: Complex, multiseptate appearance of the left scrotal soft tissues, surrounding the left testis, and cannot rule out a complex left peritesticular fluid collection. Significant bilateral scrotal edema and skin thickening. Findings are suspicious for scrotal cellulitis. Non-inflammatory causes of scrotal edema could also have this appearance. Bilateral hydroceles. Otherwise, no evidence of significant acute process. No evidence of testicular torsion. Tiny right intratesticular cysts, with findings suspicious for tubular ectasia of the right testis. 1.3 cm left spermatocele. Left-sided varicocele. See above for remaining findings.
[2017-08-20] MEDS ORDERED: Iohexol 300 100 ML IJ ONE (21:32)
--- NOTE | 2017-08-20 22:26 | CT ---
EXAM: CT Abdomen and Pelvis With Intravenous Contrast EXAM DATE/TIME: 08/20/2017 5:46 PM CLINICAL HISTORY: 72 years old, male; Pain; Abdominal pain; Localized; Lower; Additional info: R groin/ testicular edema TECHNIQUE: Axial computed tomography images of the abdomen and pelvis with intravenous contrast. All CT scans at this facility use one or more dose reduction techniques, viz.: automated exposure control; ma/kV adjustment per patient size (including targeted exams where dose is matched to indication; i.e. head); or iterative reconstruction technique. Coronal and sagittal reformatted images were created and reviewed. CONTRAST: 90 mL of [id number] administered intravenously. COMPARISON: No relevant prior studies available. FINDINGS: LOWER THORAX: Heart appears moderately enlarged. Reflux of IV contrast into the IVC and hepatic veins noted, a finding which can be seen in the setting of right heart dysfunction. Recommend clinical correlation. ABDOMEN: LIVER: Fatty infiltration of the liver. Liver appears enlarged. GALLBLADDER AND BILE DUCTS: No CT evidence of acute cholecystitis. No evidence of significant biliary ductal dilatation. PANCREAS: No CT evidence of acute pancreatitis. SPLEEN: No acute abnormality of the spleen identified. ADRENALS: No acute abnormality of the adrenal glands identified. KIDNEYS AND URETERS: Bilateral perinephric stranding, a nonspecific finding. Low density lesions in the kidneys bilaterally, most likely representing cysts. The largest of these measures 1 cm. No renal stones, hydronephrosis, or hydroureter seen. STOMACH AND BOWEL: No acute abnormality of the stomach, small bowel or colon identified, allowing for motion artifact. No evidence of bowel obstruction. APPENDIX: Appendix is seen, and is within normal limits in appearance. PELVIS: BLADDER: Mild infiltration of the fat around the bladder is noted. Bladder wall appears diffusely, mildly thickened. Findings could be signs of cystitis. Bladder diverticulosis, which could be secondary to chronic bladder outlet obstruction. Recommend clinical correlation. REPRODUCTIVE: Marked, diffuse scrotal fluid/edema, as seen on the recent scrotal ultrasound. No scrotal gas is visualized. Note that the scrotum is not included in its entirety on this exam. Prostate gland is enlarged. ABDOMEN and PELVIS: INTRAPERITONEAL SPACE: Small amount of abdominal free fluid. No evidence of free air. RETROPERITONEAL SPACE: Small amount of diffuse of fluid in the retroperitoneum, in the abdomen and pelvis, with no evidence of acute retroperitoneal hemorrhage. BONES/JOINTS: No acute fractures or other acute bony abnormality noted. SOFT TISSUES: Bilateral fat-containing inguinal hernias. Small umbilical hernia, containing only fat. No evidence of abdominal wall hernia containing bowel. VASCULATURE: No evidence of abdominal aortic aneurysm. No evidence of periaortic hemorrhage. LYMPH NODES: No evidence of diffuse lymphadenopathy. IMPRESSION: - Marked, diffuse scrotal fluid/edema, as seen on the recent scrotal ultrasound. - Small amount of diffuse of fluid in the retroperitoneum, with no evidence of acute retroperitoneal hemorrhage. - Small amount of abdominal free fluid. - Bladder findings which could be due to cystitis. Recommend correlation with urinalysis results. - Cardiomegaly, with finding suggestive of right heart dysfunction. - See above for remaining findings.
[2017-08-20 22:29] VITALS: BP 122/91; PULSE 88
== END 2017-08-20 23:14 | disposition home or self-care (01) ==
LOC: H.ER 16:38
DX: N43.3 Hydrocele, unspecified (principal); I86.1 Scrotal varices; I25.10 Atherosclerotic heart disease of native coronary artery without angina pectoris; I11.0 Hypertensive heart disease with heart failure; Z79.82 Long term (current) use of aspirin
CPT/HCPCS: 74177; 80053; 81003; 85025; 93975; 99282; Q9966; Q9967